=== PATIENT | female | born 1950 | race Asian ===

== ENCOUNTER 2020-06-11 20:04 | Emergency (ER) | payer MEDICARE ==
[2020-06-11 20:55] VITALS: BP 157/73
[2020-06-11] MEDS ORDERED: PREDNISONE 20 MG TABLET PO ONE (21:40)
[2020-06-11] MEDS ORDERED: OXYCODONE-ACETAMINOPHEN 5-325 MG TABLET PO ONE (21:41)
--- NOTE | 2020-06-11 21:48 | ER Document Report ---
ED General - General Chief Complaint: Foot Pain Stated Complaint: GOUT Time Seen by Provider: 06/11/20 21:40 Mode of Arrival: Ambulatory Information source: Patient Notes: Patient is a 70-year-old female who comes in today with chief complaint of gout in her left foot and ankle. History of same. Feels the same. No trauma. Difficulty walking. Denies calf pain and swelling. - Related Data Allergies/Adverse Reactions: No Known Allergies Allergy (Unverified 06/11/20 21:39) Past Medical History - Social History Smoking Status: Never Smoker Family History: Reviewed & Not Pertinent Patient has homicidal ideation: No Review of Systems - Review of Systems Notes: Constitutional: No fevers. No chills. EENT: No eye redness. No eye pain. No ear pain. No sore throat. Cardiovascular: No chest pain. No palpitations. Respiratory: No cough. No shortness of breath. No respiratory distress. Gastrointestinal: No abdominal pain. No nausea, vomiting, or diarrhea. Genitourinary: Atraumatic. No lesions. No pain. No discharge. Musculoskeletal: Atraumatic. No swelling. No deformities. Pain in left foot and ankle Skin: No rash or lesions. Lymphatic: No swollen lymph nodes. Neurologic: No headache. No syncope. Psychiatric: No suicidal or homicidal ideation. Physical Exam - Vital signs Vitals: Temp Pulse Resp BP Pulse Ox 98.5 F 94 20 157/73 H 96 06/11/20 20:52 06/11/20 20:52 06/11/20 20:52 06/11/20 20:52 06/11/20 20:52 - Notes Notes: General: Well-developed, well-nourished. In no acute distress. Non-toxic appearing. Cardiac: Well-perfused. Regular rate and rhythm. No murmurs, rubs, or gallops. Pulmonary: No respiratory distress. No cyanosis. Bilateral lung fiels are clear to auscultation. Abdominal: Non-distended. Non-rigid. Bowels sounds are present in all four quadrants. No guarding or rebound. HEENT: Head is atraumatic. Conjunctivae not reddened. No tearing. PERRL. EOMI. Orbits atraumatic. No periorbital swelling or erythema. Oropharynx is without erythema, swelling, or exudates. Neck: Supple. No adenopathy. No meningismus. Dermatologic: Warm with good turgor. No rash. Atraumatic. Chest: Atraumatic. No chest wall tenderness to palpation. Musculoskeletal: Moves all extremities well. No range of motion deficits. no muscular or joint tenderness. No paraspinal muscle tenderness. Tenderness to lateral foot and left lateral ankle. Minimal soft tissue swelling. No redness. No heat. No bony deformity. Distal neurovascular exam is intact. No calf tenderness. Genitourinary: Examination deferred Neurologic: No gross neurologic deficits. Psychiatric: Normal mood. Course - Re-evaluation Re-evalutation: 06/11/20 21:43 Patient reports that she takes colchicine and prednisone for flareups of her gout. Will DC her home on same - Vital Signs Vital signs: Temp Pulse Resp BP Pulse Ox 98.5 F 94 20 157/73 H 96 06/11/20 20:52 06/11/20 20:52 06/11/20 20:52 06/11/20 20:52 06/11/20 20:52 Discharge - Discharge Clinical Impression: Elevated blood pressure reading Gout Qualifiers: Gout site: multiple sites Gout etiology: idiopathic Chronicity: acute Qualified Code(s): M10.09 - Idiopathic gout, multiple sites Condition: Good Disposition: HOME, SELF-CARE Instructions: Gout ([facility]) Prescriptions: Colchicine [Colcrys 0.6 mg Tablet] 1.2 mg PO ONCE PRN #3 tablet PRN Reason: Prednisone [Deltasone 20 mg Tablet] 2 tab PO DAILY 5 Days #10 tablet Forms: Elevated Blood Pressure
== END 2020-06-11 21:54 | disposition home or self-care (01) ==
LOC: ER 20:04
DX: M10.9 Gout, unspecified (principal); R03.0 Elevated blood-pressure reading, without diagnosis of hypertension
CPT/HCPCS: 99283; A9270 ×2; J7512